=== PATIENT | female | born 1960 | race Hispanic/Latino ===

== ENCOUNTER 2020-09-20 17:12 | Observation (INO) | payer BC ==
[~2020-09-20] VITALS: Ht 154.9 cm; Wt 59.0 kg
[2020-09-20 17:41] LABS: BASOPHILS % (AUTO) 0.5 % (0.0-5.0); EOSINOPHILS % (AUTO) 1.1 % (0.0-8.0); HEMATOCRIT 45.7 % (36-48); LYMPHOCYTES % (AUTO) 26.4 % (21.0-51.0); MEAN CORPUSCULAR HEMOGLOBIN 29.4 pg (27.0-33.0); MEAN CORPUSCULAR HGB CONC 32.8 g/dL (32.0-36.0); MEAN CORPUSCULAR VOLUME 89.4 fL (79-99); MONOCYTES % (AUTO) 6.6 % (3.0-13.0); PLATELET COUNT (AUTO) 296 K/uL (130-400); RED BLOOD CELL COUNT(AUTO) 5.11 MIL/uL (4.00-5.50); RED CELL DISTRIBUTION WIDTH 12.7 % (11.0-15.5); WHITE BLOOD COUNT (AUTO) 9.9 K/uL (4.8-10.8)
[2020-09-20 17:52] LABS: CREATININE 0.9 mg/dL (0.5-1.5); POTASSIUM 3.5 mmol/L (3.5-5.1)
[2020-09-20 17:57] LABS: ALBUMIN 4.4 g/dL (3.5-5.0); BILIRUBIN,TOTAL 0.3 mg/dL (0.2-1.0); INR 0.98 (0.85-1.15); PARTIAL THROMBOPLASTIN TIME 24.9 SEC (26.3-35.5); PROTHROMBIN TIME 10.2 SEC (9.6-11.6); TOTAL PROTEIN, SERUM 8.4 g/dL (6.0-8.3)
[2020-09-20] MEDS ORDERED: LACTULOSE 20 GM/30 ML UDCUP PO PRN (21:00)
[2020-09-20] MEDS: METOPROLOL TARTRATE 25 MG TAB PO SCH (21:00)
[2020-09-20] MEDS ORDERED: ACETAMINOPHEN 325 MG TAB PO PRN ×2 (21:00)
[2020-09-20] MEDS: FAMOTIDINE 20MG TAB 20 MG TAB PO SCH (21:00)
[2020-09-20] MEDS ORDERED: ONDANSETRON HCL 4 MG/2 ML VIAL IV PRN (21:00)
[2020-09-20] MEDS ORDERED: FAMOTIDINE 20MG TAB 20 MG TAB ONE (22:38)
[2020-09-20] MEDS ORDERED: METOPROLOL TARTRATE 25 MG TAB ONE (22:39)
[2020-09-21 05:44] LABS: THYROID STIMULATING HORMONE 1.71 uIU/mL (0.36-3.74)
[2020-09-21 05:50] VITALS: BP 154/91
[2020-09-21 07:00] VITALS: BP 139/71
[2020-09-21] MEDS ORDERED: ASPIRIN 325 MG TABLET PO SCH (09:00)
[2020-09-21] MEDS: FAMOTIDINE 20MG TAB 20 MG TAB PO SCH (10:05)
[2020-09-21] MEDS: METOPROLOL TARTRATE 25 MG TAB PO SCH (10:05)
[2020-09-21 11:00] VITALS: BP 130/65
[2020-09-21 15:00] VITALS: BP 146/73
[2020-09-21] MEDS ORDERED: ROSU20TA31 PO (16:26)
[2020-09-21] MEDS ORDERED: ASPI-1026 PO (16:26)
[2020-09-21] MEDS ORDERED: METO25TA6 PO (16:26)
== END 2020-09-21 18:28 | disposition home or self-care (01) ==
LOC: EDH 17:12 → EDHIP 20:50 → 4DH 09-21 06:02
PROVIDERS: ADMIT Internal Medicine; ATTEND Internal Medicine
DX: R41.0 Disorientation, unspecified (principal); R41.2 Retrograde amnesia; I10 Essential (primary) hypertension; I65.21 Occlusion and stenosis of right carotid artery; E11.9 Type 2 diabetes mellitus without complications; E78.5 Hyperlipidemia, unspecified; Z79.899 Other long term (current) drug therapy
CPT/HCPCS: 36415 ×2; 70450; 70551; 71045; 80053; 80061; 82140; 82550; 82948; 83036; 84443; 84484; 85025; 85610; 85730; 93005; 93306; 93356; 93880; 99285; G0378 ×21